=== PATIENT | female | born 1970 | race Caucasian/White ===

== ENCOUNTER → 2017-03-15 | Outpatient (CLI) | payer OTHER ==
[~2017-03-15] MED LIST: IBUP-1451 PO; IBUP200T80 PO; NSNN50 NAE; SERT25TA PO; SERT50TA PO
[2017-03-15 12:54] LABS: ALT/SGPT 39 U/L (12-78); AST/SGOT 12 U/L (15-37); BLOOD UREA NITROGEN 17 mg/dl (7-18); BUN/CREATININE RATIO 19.2 (10-20); CARBON DIOXIDE 27 mmol/L (21-32); CHLORIDE 109 mmol/L (98-107); CHOLESTEROL 216 mg/dl (0-200); GLUCOSE,FASTING 102 mg/dl (70-99); POTASSIUM 4.4 mmol/L (3.5-5.1); SODIUM 142 mmol/L (136-145); TRIGLYCERIDES 54 mg/dl (0-150); VERY LOW DENSITY LIPOPROT CALC 11 mg/dl
[2017-03-15 12:57] LABS: ALB/GLOB RATIO 1.1 (0.9-2); ALKALINE PHOSPHATASE 96 U/L (45-117); CALCIUM 9.4 mg/dl (8.5-10.1); CHOLESTEROL/HDL RATIO 2.7; HDL CHOLESTEROL 81 mg/dl; LDL CHOLESTEROL CALCULATED 124 mg/dl
== END | disposition home or self-care (01) ==
LOC: C.LABPBG 10:17
PROVIDERS: ATTEND Neuromusculoskeletal Medicine & OMM
DX: S00.96XA Insect bite (nonvenomous) of unspecified part of head, initial encounter (principal); W57.XXXA Bitten or stung by nonvenomous insect and other nonvenomous arthropods, initial encounter

== ENCOUNTER → 2017-09-10 | Outpatient (CLI) | payer OTHER ==
[2017-09-10 12:43] LABS: LYME DISEASE AB IGG NEG (NEG); LYME DISEASE AB IGM NEG (NEG)
== END ==
LOC: C.LABPBG 09:28
PROVIDERS: ATTEND Physician Assistant
DX: R53.83 Other fatigue (principal); Z13.21 Encounter for screening for nutritional disorder

== ENCOUNTER → 2017-12-06 | Outpatient (CLI) | payer OTHER ==
--- NOTE | 2017-12-06 15:07 | DIAGNOSTIC IMAGING REPORT ---
C-SPINE ROUTINE 4 OR 5 VIEWS CLINICAL HISTORY: 47 years-old Female presenting with M54.2 [id number] Radicular pain in left [id number]. TECHNIQUE: Lateral, bilateral oblique, frontal, and open-mouth odontoid views of the cervical spine were obtained. COMPARISON: 06/18/2016. FINDINGS: Straightening of normal cervical lordosis. Vertebral bodies maintain normal height and alignment. Mild intervertebral disc height loss at C6-7, where there is a small disc osteophyte complex. No posterior bony spurring. No radiographic evidence of compression deformity or acute subluxation. Osseous neural foraminal narrowing may be present on the right at C5-6. Osseous neural foraminal narrowing may also be present on the left at C6-7. Lateral masses of C1 articulate normally with C2. Normal predental interval. No prevertebral soft tissue swelling. Lung apices clear. IMPRESSION: Mild multilevel degenerative changes in the lower cervical spine with suspected osseous neural foraminal narrowing on the right at C5-6 and on the left at C6-7. Electronically signed by: Tc Duong M.D. 12/06/2017 3:06 PM Dictated Date/Time: 12/06/2017 3:03 PM
== END | disposition home or self-care (01) ==
LOC: C.RAD 14:44
PROVIDERS: ATTEND Physician Assistant
DX: M54.2 Cervicalgia (principal); M79.2 Neuralgia and neuritis, unspecified